=== PATIENT | male | born 1995 | race Caucasian/White ===

== ENCOUNTER 2023-08-26 18:46 | Emergency (ER) | payer OTHER, SELFPAY ==
[2023-08-26 18:49] VITALS: BP 136/100
--- NOTE | 2023-08-26 19:18 | ED.GENMED ---
History of Present Illness
General
Chief Complaint: Skin Surface Trauma
Time Seen by Provider: 08/26/23 19:18
Travel History
Have you had any contact with someone who has COVID-19?: No
Do you have any symptoms of coronavirus? Fever > 100 degrees, chills, cough, shortness of breath, sore throat, loss of taste or smell, muscle aches, or headache?: No
History of Present Illness
History of Present Illness:
HPI: The patient struck a golf ball which then struck a curb and bounced back striking him in the upper lip. There was no loss of consciousness. There is no signs of trauma above the lip. However, he did injure the left upper lateral incisor as
well.
EXAM:
GENERAL: Well appearing in no distress
HEENT: There is laxity to tooth #10 along with extrusion, there is a laceration to the left side of the upper lip that extends beyond the wet dry line but not to the vermilion border and goes down to muscle layer
NEUROLOGIC: Excellent strength all extremities, no coordination deficits
PSYCHIATRIC: Appropriate mental status, normal insight and judgement
EXTREMITIES: Nontender, no edema, moves all extremities equally
SKIN: No rash, no lesions
TIME OF INITIAL ENCOUNTER: 7:30 PM
NUMBER AND COMPLEXITY OF PROBLEMS ADDRESSED AT THE ENCOUNTER
� Chronic conditions affecting care: GERD
� Acute Exacerbation and/or Progression of Chronic Illness: This is an acute problem
� Differential Diagnosis includes: Facial laceration, dental injury, no clinical evidence for concussion or brain injury
AMOUNT AND/OR COMPLEXITY OF DATA TO BE REVIEWED AND ANALYZED
� I performed an independent evaluation of and my interpretation is:
EKG:
CT:
X-rays:
Laboratory Studies:
Other:
� Review of other/old records:
� Clinical information was obtained by an independent historian: I spoke to family at bedside
� Prescriptions/Medications Considered but not given:
� Further testing considered but not performed: Considered CT of the facial bones however there does not appear to be any significant injury to the maxilla other than the extruded tooth
RISK OF COMPLICATIONS AND/OR MORBIDITY OR MORTALITY OF PATIENT MANAGEMENT
� Social determinants of health affecting care: Lives at home
� Discussion with other providers:
� Escalation of care including admission/observation vs risk of discharge considered: Complex laceration was repaired and he was irrigated as well. Will place on clindamycin. He is to tetanus status is up-to-date.
Phy Exam
Physical Exam
Physical Exam:
See HPI
Course
Orders/Labs/Results
Orders:
Orders
08/26/23 19:27
Ketorolac [Toradol] 30 mg .ROUTE .STK-MED ONE
08/26/23 19:28
Ketorolac [Toradol] 30 mg IV NOW STA
08/26/23 19:29
Ketorolac [Toradol] 30 mg IM NOW STA
Ketorolac [Toradol] 30 mg IV NOW STA
08/26/23 20:18
Clindamycin HCl [Cleocin] 150 mg PO NOW STA
Vital Signs
Initial and Last Documented VS:
Initial Vital Signs
Temp Pulse Resp BP Pulse Ox
98 F 118 20 136/100 99
08/26/23 18:49 08/26/23 18:49 08/26/23 18:49 08/26/23 18:49 08/26/23 18:49
Last Documented Vital Signs
Temp Pulse Resp BP Pulse Ox
98 F 118 20 136/100 99
08/26/23 18:49 08/26/23 18:49 08/26/23 18:49 08/26/23 18:49 08/26/23 18:49
Procedures
Laceration Closure
Upper Lip:
Status of Wound: clean
Description of Wound Edges: ragged
Preparation: cleaned with saline
Anesthesia: 1% Lidocaine
Revision/Debridement: minor revision
Type of Closure: layered closure
Skin Closure Material: 5-0 prolene
Number of sutures: 15
Additional information:
I used three 5-0 Vicryl for the muscle layer and subcutaneous layer and three 5-0 Vicryl Rapide for the skin layer
*Critical Care Note
Total Time (30-74mins, 75-104mins- exclusive of procedures): Not Applicable
ED Attending Note
-
Portions of this chart may have been created with voice recognition software.� Occasional wrong word or��sound alike� substitutions may have occurred due to the inherent limitations of voice recognition software.
Discharge Plan
Departure
Patient Disposition: Home (Routine Discharge)
Date of Disposition: 08/26/23
Time of Disposition: 20:12
Patient with high blood pressure during this ER visit?: Yes
Discharge Problem:
Laceration of lip
Instructions: Laceration Repair With Stitches (DC)
Prescriptions:
New
clindamycin HCl 150 mg capsule
150 mg PO TID Qty: 9 0RF
Activity Restrictions/Additional Instructions:
Take Tylenol and/or Motrin for pain. I used Vicryl as deep stitches and Vicryl Rapide as superficial stitches�this should dissolve on their own over the next week or so. Follow-up with your primary doctor for reassessment in approximately 1 week.
Return here if worse.
Interventions
Interventions:
*Risk Screen - Suicide Last Done: 08/26/23 18:49
*General Assessment Last Done: 08/26/23 18:49
Discharge Date and Time
Print Language: DIVEHI
[2023-08-26] MEDS: TORADOL 30 MG IM (19:29)
[2023-08-26] MEDS: CLEOCIN 150 MG PO (20:27)
== END 2023-08-26 21:49 | disposition home or self-care (01) ==
LOC: EMR 18:46
PROVIDERS: EMERGENCY PHYSICIAN Emergency Medicine; FAMILY PHYSICIAN Family Medicine
DX: S01.511A Laceration without foreign body of lip, initial encounter (principal); M26.34 Vertical displacement of fully erupted tooth or teeth; W21.04XA Struck by golf ball, initial encounter; Y93.53 Activity, golf; K21.9 Gastro-esophageal reflux disease without esophagitis; R03.0 Elevated blood-pressure reading, without diagnosis of hypertension
CPT/HCPCS: 12051; 99283